=== PATIENT | male | born 1980 | race Caucasian/White ===

== ENCOUNTER 2016-10-26 13:47 | Emergency (ER) | payer OTHER ==
[2016-10-26 15:10] LABS: URINE BILIRUBIN - DIPSTICK NEGATIVE (NEGATIVE); URINE BLOOD DIPSTICK TRACE-LYSED (NEGATIVE); URINE CLARITY CLEAR; URINE COLOR YELLOW; URINE GLUCOSE - DIPSTICK NEGATIVE (NEGATIVE); URINE KETONE NEGATIVE (NEGATIVE); URINE LEUK ESTERASE NEGATIVE (Negative); URINE NITRITE - DIPSTICK NEGATIVE (Negative); URINE PROTEIN - DIPSTICK NEGATIVE (NEG-TRACE); URINE SPECIFIC GRAVITY <=1.005; URINE UROBILINOGEN - DIPSTICK 0.2 E.U./dL (0.2)
[2016-10-26] MEDS ORDERED: PERCOCET 5/325M1 TAB PO (16:13)
[2016-10-26] MEDS ORDERED: FLEXERIL PO (16:13)
[2016-10-26 17:10] VITALS: BP 132/78
== END 2016-10-26 17:10 | disposition home or self-care (01) | DRG 552 ==
LOC: ED 13:47
PROVIDERS: Emergency Medicine
DX: M54.40 Lumbago with sciatica, unspecified side (principal); X50.1XXA Overexertion from prolonged static or awkward postures, initial encounter

== ENCOUNTER 2022-10-17 10:21 | Emergency (ER) | payer SELFPAY ==
[~2022-10-17] VITALS: Ht 165.1 cm; Wt 68.0 kg
[~2022-10-17 10:21] MED LIST: FLEXERIL PO; PERCOCET 5/325M1 TAB PO
[2022-10-17 14:18] VITALS: BP 132/92
[2022-10-17 14:30] VITALS: BP 124/89
[2022-10-17 14:46] VITALS: BP 126/85
[2022-10-17 15:00] VITALS: BP 127/87
[2022-10-17 15:15] VITALS: BP 133/88
[2022-10-17] MEDS ORDERED: FLEXERIL5 M1 PO (15:18)
[2022-10-17] MEDS ORDERED: MOTRIN400 MG/TAB PO (15:19)
[2022-10-17 15:30] VITALS: BP 138/87
== END 2022-10-17 15:30 | disposition home or self-care (01) | DRG 552 ==
LOC: ED 10:21
DX: M54.2 Cervicalgia (principal); M25.512 Pain in left shoulder; R07.81 Pleurodynia; X50.9XXA Other and unspecified overexertion or strenuous movements or postures, initial encounter